=== PATIENT | male | born 1985 | race American Indian/Alaskan Native ===

== ENCOUNTER 2019-06-23 22:24 | Emergency (ER) | payer SELFPAY ==
[2019-06-23 22:30] VITALS: BP 169/117
== END 2019-06-23 23:15 | disposition left against medical advice (07) ==
LOC: ED 22:24
DX: R07.89 Other chest pain (principal); Z53.21 Procedure and treatment not carried out due to patient leaving prior to being seen by health care provider

== ENCOUNTER 2019-06-27 00:27 | Emergency (ER) | payer SELFPAY ==
[2019-06-27] MEDS ORDERED: ASPIRIN 325 MG TAB PO ONE (00:48)
--- NOTE | 2019-06-27 01:14 | XRay Report ---
CHEST 1 VIEW INDICATION / CLINICAL INFORMATION: Chest Pain. COMPARISON: None available. FINDINGS: SUPPORT DEVICES: None. HEART / MEDIASTINUM: No significant abnormality. LUNGS / PLEURA: No significant pulmonary or pleural abnormality. No pneumothorax. ADDITIONAL FINDINGS: No significant additional findings. IMPRESSION: 1. No acute findings. Signer Name: Marcin Kelsey MD Signed: 06/27/2019 1:09 AM Workstation Name: [id number]
[2019-06-27 01:22] LABS: Basophils % (Auto) 0.5 % (0.0-1.8); Eosinophils % (Auto) 0.8 % (0.0-4.3); Hemoglobin 13.3 gm/dl (11.8-15.2); Lymphocytes # (Auto) 1.6 K/mm3 (1.2-5.4); Lymphocytes % (Auto) 25.3 % (13.4-35.0); Mean Corpuscular HGB Conc 33 % (32-34); Mean Corpuscular Volume 80 fl (84-94); Monocytes # (Auto) 0.5 K/mm3 (0.0-0.8); Monocytes % (Auto) 7.8 % (0.0-7.3); Platelet Count 185 K/mm3 (140-440); Red Blood Count 4.98 M/mm3 (3.65-5.03); Red Cell Distribution Width 14.5 % (13.2-15.2)
[2019-06-27 01:44] LABS: BUN/Creatinine Ratio 12; Blood Urea Nitrogen 12 mg/dL (9-20); Hemolysis Index 13
[2019-06-27 01:58] LABS: Alanine Aminotransferase 18 units/L (7-56); Albumin 4.4 g/dL (3.9-5)
[2019-06-27 02:00] LABS: Bilirubin,Direct < 0.2 mg/dL (0-0.2)
--- NOTE | 2019-06-27 03:20 | Emergency Department Report ---
ED General Adult HPI - General Chief complaint: Chest Pain Stated complaint: CHEST TIGHTNESS POSS HIGH BP COUGH HEADACHE Source: patient Mode of arrival: Ambulatory Limitations: No Limitations - History of Present Illness Initial comments: Patient is a 34-year-old -[place] male with no past medical history who presented to the ED with persistent headache, elevated blood pressure and chest discomfort with tightness for the last 2 days, worse in the last 12 hours. Pat ient states that he does not take any medication for hypertension has not been diagnosed with the same. Patient denies dizziness, change in vision, nausea, vomiting, shortness of breath, cough, syncope, seizures, sore throat, nasal and sinus congestion or back pain and neck pain. MD Complaint: chest pressure; uncontrolled hypertension -: Sudden, days(s) (2) Location: head, chest Radiation: non-radiation Severity scale (0 -10): 4 Quality: aching, dull Consistency: intermittent Improves with: none Worsens with: none Associated Symptoms: denies other symptoms, chest pain, headaches. denies: confusion, cough, diaphoresis, fever/chills, loss of appetite, malaise, nausea/vomiting, rash, shortness of breath, syncope, weakness, other Treatments Prior to Arrival: none - Related Data Previous Rx's Medication Instructions Recorded Last Taken Type amLODIPine 10 mg PO DAILY #30 tab 06/27/19 Unknown Rx Allergies Allergy/AdvReac Type Severity Reaction Status Date / Time No Known Allergies Allergy Unverified 06/27/19 00:42 ED Review of Systems ROS: Stated complaint: CHEST TIGHTNESS POSS HIGH BP COUGH HEADACHE Other details as noted in HPI Constitutional: denies: chills, fever Eyes: denies: eye pain, eye discharge, vision change ENT: denies: ear pain, throat pain Respiratory: denies: cough, shortness of breath, wheezing Cardiovascular: chest pain (discomfort). denies: palpitations Endocrine: no symptoms reported Gastrointestinal: denies: abdominal pain, nausea, diarrhea Genitourinary: denies: urgency, dysuria Musculoskeletal: denies: back pain, joint swelling, arthralgia Skin: denies: rash, lesions Neurological: headache. denies: weakness, paresthesias Psychiatric: denies: anxiety, depression Hematological/Lymphatic: denies: easy bleeding, easy bruising ED Past Medical Hx - Past Medical History Previous Medical History?: Yes Hx Hypertension: Yes - Surgical History Past Surgical History?: No - Social History Smoking Status: Never Smoker Substance Use Type: None - Medications Home Medications: Home Medications Medication Instructions Recorded Confirmed Last Taken Type amLODIPine 10 mg PO DAILY #30 tab 06/27/19 Unknown Rx ED Physical Exam - General Limitations: No Limitations General appearance: alert, in no apparent distress - Head Head exam: Present: atraumatic, normocephalic, normal inspection - Eye Eye exam: Present: normal appearance, PERRL, EOMI Pupils: Present: normal accommodation - ENT ENT exam: Present: normal exam, normal orophraynx, mucous membranes moist, TM's normal bilaterally, normal external ear exam - Neck Neck exam: Present: normal inspection, full ROM - Respiratory Respiratory exam: Present: normal lung sounds bilaterally. Absent: respiratory distress, wheezes, chest wall tenderness, decreased breath sounds - Cardiovascular Cardiovascular Exam: Present: regular rate, normal rhythm, normal heart sounds. Absent: systolic murmur, diastolic murmur, rubs, gallop - GI/Abdominal GI/Abdominal exam: Present: soft, normal bowel sounds. Absent: tenderness, guarding, hyperactive bowel sounds - Extremities Exam Extremities exam: Present: normal inspection, full ROM - Back Exam Back exam: Present: normal inspection, full ROM - Neurological Exam Neurological exam: Present: alert, oriented X3, CN II-XII intact, normal gait, reflexes normal - Psychiatric Psychiatric exam: Present: normal affect, normal mood - Skin Skin exam: Present: warm, dry, intact, normal color. Absent: rash ED Course Vital Signs 06/27/19 00:42 Temperature 98.8 F Pulse Rate 95 H Respiratory 20 Rate Blood Pressure 165/103 O2 Sat by Pulse 97 Oximetry ED Medical Decision Making - Lab Data Result diagrams: 06/27/19 01:06 06/27/19 01:06 - EKG Data EKG shows normal: sinus rhythm Rate: normal - EKG Data Interpretation: normal EKG 06/27/19 03:28 Normal sinus rhythm with ventricular rate of 87 beats minute, no ST or T-wave abnormalities. - Radiology Data Radiology results: report reviewed, image reviewed Chest x-ray shows no acute pulmonary abnormalities or pneumonitis. - Medical Decision Making This is a 34-year-old male who presented to the ED with elevated blood pressure and chest tightness. Patient stated that he does not take any blood pressure medications since he has not been diagnosed with hypertension. In the ED, patient is alert and oriented 3 and is not in distress. EKG shows normal sinus rhythm with ventricular rate of 87 beats a minute and no ST or T-wave abnormalities. Lab test results were reviewed and are all nonactionable. Patient was discharged home on medications and advised follow-up with his primary care physician in 5-7 days for reevaluation. Patient was given a prescription for Norvasc 10 mg daily for hypertension. Patient was advised to return to the ED immediately if symptoms get worse. - Differential Diagnosis CAD; Pneumonia; CHF, Critical care attestation.: If time is entered above; I have spent that time in minutes in the direct care of this critically ill patient, excluding procedure time. ED Disposition Clinical Impression: Uncontrolled stage 2 hypertension, Discomfort of chest wall Disposition: DC-01 TO HOME OR SELFCARE Is pt being admited?: No Does the pt Need Aspirin: No Condition: Stable Instructions: Hypertension (ED), Noncardiac Chest Pain (ED) Additional Instructions: Take medications as advised on a daily basis for hypertension, follow-up with [facility] for further evaluation. Return to the ED immediately if symptoms get worse. Prescriptions: amLODIPine 10 mg PO DAILY #30 tab Referrals: PRIMARY CARE, [Primary Care Provider] - 3-5 Days Forms: Work/School Release Form(ED) Time of Disposition: 03:20 Print Language: HUNGARIAN
[2019-06-27 03:31] VITALS: BP 160/96
== END 2019-06-27 03:35 | disposition home or self-care (01) ==
LOC: ED 00:27
DX: I10 Essential (primary) hypertension (principal); R07.89 Other chest pain
CPT/HCPCS: 36415; 71045; 80048; 80076; 84484; 85025; 93005; 93010

== ENCOUNTER 2020-07-16 01:15 | Emergency (ER) | payer SELFPAY ==
[2020-07-16 01:30] VITALS: BP 165/123
[2020-07-16 01:52] LABS: Hematocrit 41.3 % (35.5-45.6); Hemoglobin 13.5 gm/dl (11.8-15.2); Mean Corpuscular HGB Conc 33 % (32-34); Mean Corpuscular Volume 79 fl (84-94); Platelet Count 225 K/mm3 (140-440); Red Blood Count 5.24 M/mm3 (3.65-5.03); Red Cell Distribution Width 14.9 % (13.2-15.2)
[2020-07-16 02:07] LABS: BUN/Creatinine Ratio 11; Blood Urea Nitrogen 11 mg/dL (9-20); Calcium 9.3 mg/dL (8.4-10.2); Hemolysis Index 3
--- NOTE | 2020-07-16 02:15 | Cat Scan Report ---
CT head without contrast INDICATION : Patient complains of a headache and numbness to RIGHT sided face. TECHNIQUE: Axial imaging performed from the skull apex through the skull base without the use of con trast. All CT scans at this location are performed using CT dose reduction for ALARA by means of aut omated exposure control. COMPARISON: None FINDINGS: Parenchyma: No acute intracranial hemorrhage or parenchymal abnormality. Ventricles: Ventricles are normal in size and appear symmetric. Soft tissues: Soft tissues including the orbits appear normal. Bones: No acute osseous abnormality. Sinuses: Sinuses and mastoid air cells are clear. IMPRESSION: No acute abnormality. Signer Name: Estevan Hogue MD Signed: 07/16/2020 2:10 AM Workstation Name: [id number]
[2020-07-16 02:31] LABS: INR 0.98 (0.87-1.13)
== END 2020-07-16 04:28 | disposition left against medical advice (07) ==
LOC: ED 01:15
DX: R20.0 Anesthesia of skin (principal); Z53.21 Procedure and treatment not carried out due to patient leaving prior to being seen by health care provider
CPT/HCPCS: 36415; 70450; 80048; 85027; 85610; 85730